=== PATIENT | female | born 2000 | race Hispanic/Latino ===

== ENCOUNTER 2022-04-06 08:37 | Emergency (ER) | payer OTHER ==
[~2022-04-06] VITALS: Ht 167.6 cm; Wt 78.2 kg
[~2022-04-06 08:37] MED LIST: ALBUTEROL0.5 % IN; AMOXIL400 MG/5 M OR; PRILOSEC20 MG/CAP PO; QC IBUPROF100 MG/5 M OR; SINGULAIR5 MG OR
[2022-04-06] MEDS ORDERED: TESSALON PERLE100 MG PO (11:30)
[2022-04-06 11:32] VITALS: BP 112/77
== END 2022-04-06 11:36 | disposition home or self-care (01) ==
LOC: ED 08:37
DX: B34.9 Viral infection, unspecified (principal); Z20.822 Contact with and (suspected) exposure to COVID-19

== ENCOUNTER 2022-07-03 00:21 | Emergency (ER) | payer OTHER ==
[~2022-07-03] VITALS: Ht 167.6 cm; Wt 77.1 kg
[~2022-07-03 00:21] MED LIST changes: +TESSALON PERLE100 MG PO
[2022-07-03 01:10] VITALS: BP 110/70
[2022-07-03 01:15] VITALS: BP 118/71
[2022-07-03 02:26] LABS: BASO% 0.4 % (0-3); EOS% 1.9 % (0-8); IMMATURE GRANULOCYTES 0.2 % (0.0-5.0); LYMPH% 5.5 % (15-41); MEAN CORPUSCULAR HGB 29.3 pG CALC (26.0-32.0); MEAN CORPUSCULAR HGB CONC 33.3 g/dL CAL (32.0-36.0); MONO% 8.6 % (2-13); NEUT# 7.75 thou/uL (2.00-7.15); NEUT% 83.4 % (42-76); RED BLOOD COUNT 3.68 mill/uL (4.20-5.60); RED CELL DISTRI WIDTH 12.6 % (11.5-15.5)
[2022-07-03 02:28] LABS: HEMATOCRIT 32.4 % (37.0-47.0); HEMOGLOBIN 10.8 g/dl (12.0-16.0)
[2022-07-03] MEDS ORDERED: TAM75CAP PO (02:41)
[2022-07-03 03:15] VITALS: BP 118/71
== END 2022-07-03 03:23 | disposition home or self-care (01) ==
LOC: ED 00:21
PROVIDERS: Family Medicine
DX: J10.1 Influenza due to other identified influenza virus with other respiratory manifestations (principal); Z20.822 Contact with and (suspected) exposure to COVID-19

== ENCOUNTER 2022-08-19 08:45 | Emergency (ER) | payer OTHER ==
[~2022-08-19] VITALS: Ht 167.6 cm; Wt 72.6 kg
[~2022-08-19 08:45] MED LIST changes: +TAM75CAP PO
[2022-08-19 09:03] VITALS: BP 106/44
[2022-08-19] MEDS ORDERED: ZPAK PO ×2 (09:16→10:38)
[2022-08-19 09:30] VITALS: BP 105/67
[2022-08-19 10:00] VITALS: BP 107/78
[2022-08-19 10:30] VITALS: BP 100/65
== END 2022-08-19 10:37 | disposition home or self-care (01) ==
LOC: ED 08:45
DX: J06.9 Acute upper respiratory infection, unspecified (principal); Z20.822 Contact with and (suspected) exposure to COVID-19

== ENCOUNTER 2024-03-12 02:59 | Emergency (ER) | payer SELFPAY ==
[~2024-03-12] VITALS: Ht 167.6 cm; Wt 78.0 kg
[2024-03-12] VITALS (7 sets, daily range): BP systolic 92–121; BP diastolic 58–83
[~2024-03-12 02:59] MED LIST changes: +ZPAK PO
[2024-03-12] MEDS ORDERED: IRON325 M1 (03:11)
[2024-03-12] MEDS ORDERED: SODIUM CHLORIDE 0.9% 1,000 ML IV STA ×2 (03:20→04:37)
[2024-03-12] MEDS ORDERED: PROMETHAZINE HCL 25 MG/ML AMP IV ONE (03:25)
[2024-03-12 03:46] LABS: BASO% 0.6 % (0-3); EOS% 2.3 % (0-8); IMMATURE GRANULOCYTES 0.2 % (0.0-5.0); LYMPH% 21.5 % (15-41); MEAN CELL VOLUME 88.5 fL CALC (80.0-100.0); MEAN CORPUSCULAR HGB 28.7 pG CALC (26.0-32.0); MEAN CORPUSCULAR HGB CONC 32.4 g/dL CAL (32.0-36.0); MONO% 7.3 % (2-13); NEUT# 5.67 thou/uL (2.00-7.15); NEUT% 68.1 % (42-76); RED BLOOD COUNT 4.18 mill/uL (4.20-5.60); RED CELL DISTRI WIDTH 12.5 % (11.5-15.5)
[2024-03-12 03:57] LABS: URINE BLOOD DIPSTICK Large (NEGATIVE); URINE COLOR Red; URINE GLUCOSE - DIPSTICK Negative (NEGATIVE); URINE KETONE Trace mg/dL (NEGATIVE); URINE LEUK ESTERASE Negative (NEGATIVE); URINE NITRITE - DIPSTICK Negative (Negative); URINE PH 5.5 (4.5-8.0); URINE PROTEIN - DIPSTICK 100 mg/dL (NEG-TRACE); URINE SPECIFIC GRAVITY >=1.030; URINE UROBILINOGEN - DIPSTICK 0.2 E.U./dL (0.2)
[2024-03-12 04:03] LABS: URINE RBC >100 RBC/hpf (0-5); URINE SQUAMOUS EPITHELIAL CELL FEW EPI/hpf (0-FEW); URINE WBC 0-2 WBC/hpf (0-5)
[2024-03-12 04:04] LABS: URINE BACTERIA FEW hpf
[2024-03-12 04:09] LABS: ALBUMIN 4.3 g/dL (3.2-5.0); BILIRUBIN, TOTAL 0.3 mg/dL (0.02-1.3); CREATININE 0.7 mg/dL (0.5-1.0); POTASSIUM 3.7 mmol/l (3.5-5.1); TOTAL PROTEIN 7.1 g/dL (6.3-8.2)
[2024-03-12] MEDS ORDERED: KETOROLAC TROMETHAMINE 30 MG/ML SDV IV ONE (04:40)
[2024-03-12] MEDS ORDERED: traMADol HCL 50 MG/TAB PO ONE (04:40)
[2024-03-12] MEDS ORDERED: ACETAMINOPHEN 500 MG TAB PO ONE (04:40)
[2024-03-12] MEDS ORDERED: PROMETHAZINE HY25 M1 PO (05:37)
[2024-03-12] MEDS ORDERED: DICYCLOMINE HYD10 MG PO (05:37)
== END 2024-03-12 05:40 | disposition home or self-care (01) | DRG 392 ==
LOC: ED 02:59
PROVIDERS: Family Medicine
DX: A08.4 Viral intestinal infection, unspecified (principal); Z20.822 Contact with and (suspected) exposure to COVID-19